=== PATIENT | female | born 1955 | race American Indian/Alaskan Native ===

== ENCOUNTER 2021-04-25 08:44 | Emergency (ER) | payer MEDICARE ==
[2021-04-25 10:32] VITALS: BP 135/70
--- NOTE | 2021-04-25 11:07 | Emergency Department Report ---
Blank Doc - Documentation Documentation: 65-year-old female that presents with body aches, diarrhea, general weakness, and n/v. 1- This is a initial triage assessment/medical screening only. Full assessment and work-up will be completed once the patient is in proper hospital gown, ED bed and in a private room setting. This initial assessment/diagnostic orders/clinical plan/ treatment(s) is/are subject to change based on pt's health status, clinical progression and re-assessment by fellow clinical providers in the ED. Further treatment and workup at subsequent clinical providers discretion. Patient/guardians urged not to elope from ED as their condition may be serious if not clinically assessed and managed. 2-labs 3-UA
[2021-04-25 11:49] LABS: Hematocrit 38.9 % (30.3-42.9); Hemoglobin 12.9 gm/dl (10.1-14.3); Mean Corpuscular HGB Conc 33 % (30-34); Mean Corpuscular Volume 93 fl (79-97); Platelet Count 111 K/mm3 (140-440); Red Blood Count 4.17 M/mm3 (3.65-5.03); Red Cell Distribution Width 11.9 % (13.2-15.2)
[2021-04-25 12:14] LABS: Alanine Aminotransferase 14 units/L (7-56); Albumin 4.2 g/dL (3.9-5); Blood Urea Nitrogen 16 mg/dL (7-17); Calcium 9.2 mg/dL (8.4-10.2); Hemolysis Index 1
[2021-04-25 12:15] LABS: BUN/Creatinine Ratio 23
[2021-04-25 15:00] LABS: Band Neutrophils # (Manual) 0.1 K/mm3; Promyelocytes # (Manual) 6.9 K/mm3; Total Cells Counted 100
[2021-04-25 15:09] LABS: RBC Morphology Normal
[2021-04-25 15:10] LABS: Platelet Estimate Consistent w Auto
== END 2021-04-25 19:45 | disposition left against medical advice (07) ==
LOC: ED 08:44
DX: R53.1 Weakness (principal); Z53.21 Procedure and treatment not carried out due to patient leaving prior to being seen by health care provider
CPT/HCPCS: 36415; 80053; 83690; 85007; 85025